=== PATIENT | female | born 1985 | race Hispanic/Latino ===

== ENCOUNTER 2016-12-01 16:40 | Emergency (ER) | payer OTHER ==
[~2016-12-01] VITALS: Ht 157.5 cm; Wt 68.0 kg
[~2016-12-01 16:40] MED LIST: ANAPROX DS550 MG PO; TRAMADOL HCL50 MG PO
--- OUTSIDE RECORDS SUMMARY | 2016-12-01 16:58 | XMS ---
Demographics + + + | Address | [address] | | | [address] | | | [place] [address] | + + + | Preferred Language | Unknown | + + + | Marital Status | Unknown | + + + | Christianity Affiliation | Unknown | + + + | Race | Unknown | + + + | Ethnic Group | Unknown | + + + Author + + + | Author | [facility] | + + + | Organization | [facility] | + + + | Address | [address] | | | [place] [address] | + + + | Phone | | + + + Care Team Providers + + + + | Care Sap Bpc Developer Name | Role | Phone | + + + + Unavailable | Unavailable | + + + + PROBLEMS + + + + + + + + | Type | Condition | ICD9-CM | [id number] | Onset | Condition | SNOMED | | | | Code | Code | Dates | Status | Code | + + + + + + + + | Assessment | Dysuria | | R30.0 | 09 October, | Active | [id number] | | | | | | 2017 | | | + + + + + + + + | Assessment | Screen for | | Z11.3 | 09 October, | Active | [id number] | | | STD | | | 2016 | | | | | (sexually | | | | | | | | transmitte | | | | | | | | d disease) | | | | | | + + + + + + + + ALLERGIES + + + + +--------+ | Substance | Reaction | Event Type | Date | Status | + + + + +--------+ | Ibuprofen | swelling | Drug Allergy | September, | Active | + + + + +--------+ SOCIAL HISTORY No smoking Hx information available PLAN OF CARE + +---------+ | Activity | Details | + +---------+ +---+ | | +---+ + + + | Pending Test | Chlamydia/GC Aptima | + + + | | prn,Reason: | + + + VITAL SIGNS + + + + | Height | 63 in | 2016-10-09 | + + + + | Weight | 148.8 lbs | 2016-10-09 | + + + + | BMI | 26.36 kg/m2 | 2016-10-09 | + + + + | Temperature | 98.1 degrees Fahrenheit | 2016-10-09 | + + + + | Heart Rate | 70 /min | 2016-10-09 | + + + + | Blood pressure systolic | 127 mm Hg | 2016-10-09 | + + + + | Blood pressure diastolic | 63 mm Hg | 2016-10-09 | + + + + MEDICATIONS No Known Medications RESULTS + +--------+ + + | Name | Result | Date | Reference Range | + +--------+ + + | Urinalysis, Dip | | 2016-10-09 | | | (IH) | | | | + +--------+ + + | Specific Thurman | 1.010 | | | + +--------+ + + | pH | 6 | | | + +--------+ + + | Leukocytes | NEG | | | + +--------+ + + | Nitrite, Urine | NEG | | | + +--------+ + + | Protein | NEG | | | + +--------+ + + | Glucose | NORM | | | + +--------+ + + | Ketones | NEG | | | + +--------+ + + | Urobilingen, | NORM | | | | Semi-Qn | | | | + +--------+ + + | Bilirubin | NEG | | | + +--------+ + + | Blood Hemoglobin | NEG | | | | (BLD) | | | | + +--------+ + + | Urinalysis, HCG | | 2016-10-09 | | | (IH) | | | | + +--------+ + + PROCEDURES + + + + + | Procedure | Date Ordered | Related Diagnosis | Body Site | + + + + + | LAB URINALYSIS (DIP | October 09, 2016 | | | | STICK ONLY | | | | + + + + + | FC [id number] URINE | October 09, 2016 | | | | TEST | | | | + + + + + | DSCHRG MED/CURRENT | October 09, 2016 | | | | MED MERGE | | | | + + + + + | Est Level III | October 09, 2016 | | | | Intermediate | | | | + + + + + | DOC MEDS VERIFIED | October 09, 2016 | | | | W/PT OR RE | | | | + + + + + IMMUNIZATIONS No Known Immunizations"
--- OUTSIDE RECORDS SUMMARY | 2016-12-01 16:58 | XMS ---
Demographics + + + | Address | [address] | | | [address] | | | [place] [address] | + + + | Preferred Language | Unknown | + + + | Marital Status | Unknown | + + + | Latter-Day Affiliation | Unknown | + + + | Race | Unknown | + + + | Ethnic Group | Unknown | + + + Author + + + | Author | [facility] | + + + | Organization | [facility] | + + + | Address | [address] | | | [place] [address] | + + + | Phone | | + + + Care Team Providers + + + + | Care Cattle Dipper Name | Role | Phone | + + + + Unavailable | Unavailable | + + + + PROBLEMS Unknown Problems ALLERGIES Unknown Allergies SOCIAL HISTORY No smoking Hx information available PLAN OF CARE VITAL SIGNS MEDICATIONS Unknown Medications RESULTS No Results PROCEDURES No Known procedures IMMUNIZATIONS No Known Immunizations"
--- OUTSIDE RECORDS SUMMARY | 2016-12-01 16:58 | XMS ---
Demographics + + + | Address | [address] | | | [address] | | | [place] [address] | + + + | Preferred Language | Unknown | + + + | Marital Status | Unknown | + + + | Christian Affiliation | Unknown | + + + | Race | Unknown | + + + | Ethnic Group | Unknown | + + + Author + + + | Author | [facility] | + + + | Organization | [facility] | + + + | Address | [address] | | | [place] [address] | + + + | Phone | | + + + Care Team Providers + + + + | Care Casting Machine Set Up Operator Name | Role | Phone | + + + + Unavailable | Unavailable | + + + + PROBLEMS + + + + + + + + | Type | Condition | ICD9-CM | [id number] | Onset | Condition | SNOMED | | | | Code | Code | Dates | Status | Code | + + + + + + + + | Assessment | Acute URI | | J06.9 | Aug, | Active | [id number] | | | | | | 2016 | | | + + + + + + + + | Assessment | Pleuritic | R07.81 | | Aug, | Active | [id number] | | | pain | | | 2016 | | | + + + + + + + + ALLERGIES + + + + +--------+ | Substance | Reaction | Event Type | Date | Status | + + + + +--------+ | Ibuprofen | swelling | Drug Allergy | Aug, | Active | + + + + +--------+ SOCIAL HISTORY No smoking Hx information available PLAN OF CARE VITAL SIGNS + + + + | Height | 63 in | 2016-09-04 | + + + + | Weight | 151.3 lbs | 2016-09-04 | + + + + | BMI | 26.80 kg/m2 | 2016-09-04 | + + + + | Temperature | 98.3 degrees Fahrenheit | 2016-09-04 | + + + + | Heart Rate | 75 /min | 2016-09-04 | + + + + | Blood pressure systolic | 117 mm Hg | 2016-09-04 | + + + + | Blood pressure diastolic | 78 mm Hg | 2016-09-04 | + + + + MEDICATIONS + + +---------+ + + + +--------+ | Medicati | Instruct | Dosage | Frequenc | Start | End Date | Duration | Status | | on | ions | | y | Date | | | | + + +---------+ + + + +--------+ | Tramadol | | | | | | | Active | | HCl | | | | | | | | + + +---------+ + + + +--------+ | Albutero | Inhalati | 1 puff | 4h | 06 Apr, | | 15 | Active | | l | on every | as | | 2017 | | day(s) | | | Sulfate | 4 hrs | needed | | | | | | | 108 (90 | | | | | | | | | Base) | | | | | | | | | MCG/ACT | | | | | | | | + + +---------+ + + + +--------+ RESULTS + +--------+------+ + | Name | Result | Date | Reference Range | + +--------+------+ + | Rapid Flu, A & B | | | | | (IH) | | | | + +--------+------+ + PROCEDURES + + + + + | Procedure | Date Ordered | Related Diagnosis | Body Site | + + + + + | INFLUENZA ASSAY | September 04, 2016 | | | | W/OPTIC | | | | + + + + + | Est Level III | September 04, 2016 | | | | Intermediate | | | | + + + + + IMMUNIZATIONS No Known Immunizations"
--- NOTE | 2016-12-01 20:57 | EKG ---
[facility] [address] [facility] [address] [place] [address] Signed Normal sinus rhythm Normal ECG No previous ECGs available Confirmed by ELIECER PHILLIPS MD ([id number]) on 12/01/2016 8:57:46 PM Electronically Signed By: ELIECER PHILLIPS MD 12/01/16 2057 PATIENT NAME: MICHAEL RASMUSSEN Electrocardiogram DATE OF : 89 PHYSICIAN: ELIECER PHILLIPS MD REPORT #: [id number] REPORT IS CONFIDENTIAL AND NOT TO BE RELEASED WITHOUT AUTHORIZATION
== END 2016-12-01 17:43 | disposition home or self-care (01) ==
LOC: ED 16:40
DX: F41.9 Anxiety disorder, unspecified (principal); G44.209 Tension-type headache, unspecified, not intractable; F17.200 Nicotine dependence, unspecified, uncomplicated; Z90.49 Acquired absence of other specified parts of digestive tract; Z98.890 Other specified postprocedural states
CPT/HCPCS: 93005; 93010; 99283

== ENCOUNTER 2017-04-10 01:22 | Emergency (ER) | payer OTHER ==
[~2017-04-10] VITALS: Ht 160 cm; Wt 68.0 kg
[2017-04-10] MEDS ORDERED: NAPROXEN500 MG PO (01:35)
== END 2017-04-10 01:55 | disposition home or self-care (01) ==
LOC: ED 01:22
DX: F41.9 Anxiety disorder, unspecified (principal); Z87.891 Personal history of nicotine dependence; Z98.890 Other specified postprocedural states; Z88.6 Allergy status to analgesic agent
CPT/HCPCS: 99283

== ENCOUNTER 2018-08-15 21:18 | Emergency (ER) | payer OTHER ==
[~2018-08-15] VITALS: Ht 160 cm; Wt 63.5 kg
[~2018-08-15 21:18] MED LIST changes: +NAPROXEN500 MG PO
--- OUTSIDE RECORDS SUMMARY | 2018-08-15 21:20 | XMS ---
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 E.D. VISIT COUNT (12 MO.) 5 [facility] Erick 1 NATALIE Rojas TOTAL 6 NOTE: Visits indicate total known visits. ED/UCC VISIT TRACKING (12 MO.) 08/15/2018 21:18 [place] TYPE: Emergency COMPLAINT: - POST OP PROBLEM [facility]2018 [facility] DIAGNOSES: - Cough - Influenza due to other identified influenza virus with other respiratory manifestations - Acute cystitis without hematuria - Fever (9 Weeks To 74 Years) - abd pain 07/29/2018 10:[facility] DIAGNOSES: - finger injury - Displaced fracture of middle phalanx of right ring finger, initial encounter for closed fracture 07/08/2018 07:56 [facility] Emergency DIAGNOSES: - Other hammer toe(s) (acquired), right foot - Bi-Lateral Foot Pain - Other hammer toe(s) (acquired), left foot 10/04/2017 15:52 [facility] Emergency DIAGNOSES: - abd 4 months preg - Nausea - abd pain 4 months preg - Unspecified abdominal pain - Nausea - 16 weeks gestation of - Abdominal Pain () 09/05/2017 12:21 [facility] Erick Annmarie ROMANO TYPE: Emergency DIAGNOSES: - Encounter for supervision of normal , unspecified, unspecified trimester - ABDOMINAL PAIN INPATIENT VISIT TRACKING (12 MO.) 03/18/2018 05:55 [facility] ReynaldoKeke ROMANO TYPE: Mother Baby Unit DIAGNOSES: - O34.211 - Encounter for routine follow-up 03/05/2018 18:04 [facility] Mother Baby Unit DIAGNOSES: - O34.211 - Non-stress Test [email or web address]
[2018-08-15] MEDS ORDERED: KEFLEX500 MG PO (21:34)
== END 2018-08-15 22:10 | disposition home or self-care (01) ==
LOC: ED 21:18
DX: Z48.01 Encounter for change or removal of surgical wound dressing (principal); Z88.6 Allergy status to analgesic agent
CPT/HCPCS: 99283

== ENCOUNTER 2023-05-25 11:25 | Emergency (ER) | payer OTHER ==
[~2023-05-25] VITALS: Ht 160 cm; Wt 64.1 kg
[~2023-05-25 11:25] MED LIST changes: +KEFLEX500 MG PO
[2023-05-25 11:53] LABS: BILIRUBIN, URINE POSITIVE (negative); BLOOD/HGB, URINE TRACE-I (Negative); KETONE, URINE >=80 (Negative); LEUK ESTERASE, URINE TRACE (negative); NITRITE, URINE NEGATIVE (negative); PH, URINE 5.5 (5-7)
[2023-05-25 12:16] LABS: AMPHETAMINES, URINE NEGATIVE (NEGATIVE); BARBITURATES, URINE NEGATIVE (NEGATIVE); BENZODIAZEPINE, URINE NEGATIVE (NEGATIVE); BUPRENORPHINE, URINE NEGATIVE (NEGATIVE); CANNABINOID, URINE NEGATIVE (NEGATIVE); COCAINE, URINE NEGATIVE (NEGATIVE); ECSTASY, URINE NEGATIVE (NEGATIVE); FENTANYL, URINE NEGATIVE (NEGATIVE); METHADONE, URINE NEGATIVE (NEGATIVE); OPIATES, URINE NEGATIVE (NEGATIVE); OXYCODONE, URINE NEGATIVE (NEGATIVE); PHENCYCLIDINE, URINE NEGATIVE (NEGATIVE)
[2023-05-25 12:32] LABS: BACTERIA, URINE RARE /hpf (negative); CASTS, URINE NONE SEEN \\lpf; COLLECTION TYPE, URINE CLEAN CATCH; CRYSTALS, URINE NONE SEEN (0-1+); EPITHELIAL CELLS, URINE SQUAMOUS 2+ /lpf (0-1+); REFLEX CULTURE, URINE No (No)
[2023-05-25] MEDS ORDERED: BENZTROPINE MESY1 MG PO (12:50)
[2023-05-25] MEDS ORDERED: RISPERDAL2 MG PO (12:50)
[2023-05-25 12:54] VITALS: BP 110/71
== END 2023-05-25 12:56 | disposition home or self-care (01) ==
LOC: ED 11:25
PROVIDERS: Emergency Medicine
DX: F23 Brief psychotic disorder (principal); F15.99 Other stimulant use, unspecified with unspecified stimulant-induced disorder; Z88.6 Allergy status to analgesic agent
CPT/HCPCS: 80053; 80307; 81001; 84443; 84703; 85025; 99284; A9270; G0480

== ENCOUNTER 2023-06-22 08:10 | Emergency (ER) | payer OTHER ==
[~2023-06-22] VITALS: Ht 160 cm; Wt 65.0 kg
[~2023-06-22 08:10] MED LIST changes: +BENZTROPINE MESY1 MG PO; +RISPERDAL2 MG PO
[2023-06-22 08:47] VITALS: BP 122/84
--- OUTSIDE RECORDS SUMMARY | 2023-06-22 08:57 | XMS ---
PreManage Notification: MICHAEL RASMUSSEN Security Steward/Stewardess Second Class Events No recent Security Events currently on file CRITERIA MET - [facility] - 2 Visits in 30 Days CARE PROVIDERS JAMES HOFFMAN Physician Resource Specialist: Medical 08/16/2018-Current PHONE: Unknown -Alexis- Dentist: Search Marketing Coordinator [facility] PHONE: [phone] MIRIAM GRIFFIN Current PHONE: Unknown [facility]/Center: [facility] Qualified [facility] Current WORKERS CLINIC \[facility] ([facility]) [facility], [facility] PHONE: [phone] Taylor has no Care Guidelines for this patient. Nelly VISIT COUNT (12 MO.) 5 [facility] (Annmarie Anguiano) 3 NATALIE Rojas TOTAL 8 NOTE: Visits indicate total known visits. ED/UCC VISIT TRACKING (12 MO.) 06/22/2023 08:11 [place] TYPE: Emergency COMPLAINT: - MEDICAL CLEARANCE 06/19/2023 06:30 [facility] Annmarie ROMANO (Annmarie Anguiano) TYPE: Emergency DIAGNOSES: - Hematuria, unspecified - Urinary tract infection, site not specified - Abdominal Pain 05/25/2023 11:[address] [facility] St[facility] Zana JARAMILLO TYPE: Emergency COMPLAINT: - ALTERED DIAGNOSES: - Allergy status to analgesic agent - Brief psychotic disorder - Other stimulant use, unspecified with unspecified stimulant-induced disorder - Suicidal ideations 12/28/2022 14:18 [facility] Annmarie ROMANO (Annmarie Anguiano) TYPE: Emergency DIAGNOSES: - Bunion of left foot - Bunion of right foot - Tinea pedis - Foot Pain 12/03/2022 18:38 [facility] Annmarie Anguiano JUAN ANTONIO (Annmarie Anguiano) TYPE: Emergency DIAGNOSES: - Encounter for other specified special examinations - ambulance 09/14/2022 20:16 [place] TYPE: Emergency COMPLAINT: - AMS DIAGNOSES: - Allergy status to analgesic agent - Brief psychotic disorder - Other asthma - Other stimulant abuse, uncomplicated - Suicidal ideations 08/31/2022 12:44 [facility] Annmarie Anguiano JUAN ANTONIO (Annmarie Anguiano) TYPE: Emergency DIAGNOSES: - Cellulitis, unspecified - Contusion of left knee, initial encounter - Other infective bursitis, unspecified site - Wound Infection (Complicated) 08/31/2022 10:16 [facility] [place] (Annmarie Anguiano) TYPE: Emergency DIAGNOSES: - Cellulitis, unspecified - Contusion of left knee, initial encounter - Leg Pain - Leg Swelling INPATIENT VISIT TRACKING (12 MO.) No inpatient visits to display in this time frame [email or web address]
== END 2023-06-22 08:47 | disposition home or self-care (01) ==
LOC: ED 08:10
DX: Z04.6 Encounter for general psychiatric examination, requested by authority (principal); Z59.00 Homelessness unspecified; J45.990 Exercise induced bronchospasm; Z79.899 Other long term (current) drug therapy
CPT/HCPCS: 99283

== ENCOUNTER 2024-05-18 17:28 | Emergency (ER) | payer OTHER ==
[~2024-05-18] VITALS: Ht 160 cm; Wt 85.0 kg
--- OUTSIDE RECORDS SUMMARY | 2024-05-18 17:29 | XMS ---
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 Current WORKERS CLINIC \[facility] ([facility]) [facility] PHONE: [phone] Taylor has no Care Guidelines for this patient. Nelly VISIT COUNT (12 MO.) 8 [facility] 3 NATALIE Rojas 2 [facility] Debora Suarez (Annmarie Anguiano) TOTAL 13 NOTE: Visits indicate total known visits. ED/UCC VISIT TRACKING (12 MO.) 05/18/2024 17:28 [place] TYPE: Emergency COMPLAINT: - VOMITING 03/01/2024 19:53 [facility] [employer] [place] TYPE: Emergency DIAGNOSES: - Alcohol abuse, uncomplicated - Nausea with vomiting, unspecified - VOMITING 02/08/2024 22:54 [facility] [place] TYPE: Emergency COMPLAINT: - SOB DIAGNOSES: - SOB 01/21/2024 17:25 [employer] [place] TYPE: Emergency DIAGNOSES: - Acute bronchitis due to other specified organisms - Bronchitis, not specified as acute or chronic - Other specified bacterial agents as the cause of diseases classified elsewhere - GENERAL 01/15/2024 16:16 [facility] [place] TYPE: Emergency DIAGNOSES: - COVID-19 - Pneumonia due to Mycoplasma pneumoniae - Unspecified psychosis not due to a substance or known physiological condition - MENTAL HEALTH 01/11/2024 19:23 [email or web address] [place] TYPE: [facility] DIAGNOSES: - Acute suppurative otitis media without spontaneous rupture of ear drum, left ear - Foreign body sensation, other site - FB IN EAR 12/14/2023 15:58 [facility] [place] TYPE: Emergency DIAGNOSES: - Chest pain, unspecified - DIZZINESS CHEST PAIN 11/23/2023 09:00 [facility] [place] [facility] DIAGNOSES: - Bunion of left foot - Bunion of right foot - foot pain 10/26/2023 02:10 [facility] [place] TYPE: Emergency DIAGNOSES: - Encounter for other general examination - Hypokalemia - Other stimulant abuse, uncomplicated - Unspecified psychosis not due to a substance or known physiological condition - Mental Health Evaluation 09/01/2023 16:13 [facility] [place] TYPE: Emergency DIAGNOSES: - Cystitis, unspecified with hematuria - Viral infection, unspecified - DOESNT FEEL GOOD 06/22/2023 08:11 [place] TYPE: Emergency COMPLAINT: - MEDICAL CLEARANCE DIAGNOSES: - Encounter for general psychiatric examination, requested by authority - Exercise induced bronchospasm - Homelessness unspecified - Other termite control service representative (current) drug therapy 06/19/2023 06:30 [facility] Debora Anguiano) TYPE: Emergency DIAGNOSES: - Hematuria, unspecified - Urinary tract infection, site not specified - Abdominal Pain 05/25/2023 11:26 [place] TYPE: Emergency COMPLAINT: - ALTERED DIAGNOSES: - Allergy status to analgesic agent - Brief psychotic disorder - Other stimulant use, unspecified with unspecified stimulant-induced disorder - Suicidal ideations INPATIENT VISIT TRACKING (12 MO.) 03/08/2024 18:15 [facility] [place] TYPE: Psychiatric Services DIAGNOSES: 0. Unspecified psychosis not due to a substance or known physiological condition 1. Unspecified psychosis not due to a substance or known physiological condition 2. Alcohol dependence, uncomplicated 2. Bipolar disorder, current episode manic severe with psychotic features 2. Homelessness unspecified 2. Nicotine dependence, cigarettes, uncomplicated 2. Other specified lack of adequate food [email or web address]
[2024-05-18] MEDS ORDERED: SODIUM CHLORIDE 0.9% 500 ML IV ONE (17:45)
[2024-05-18 18:13] LABS: BASOPHILS 0.3 % (0-2); HEMATOCRIT 40.2 % (35.0-50.0); HEMOGLOBIN 13.6 g/dL (12.0-18.0); LYMPHOCYTES 6.8 % (24-44); MCH 30.9 (27-36); MCHC 33.7 g/dl (30-36); MCV 91.6 fl (81-99); MONOCYTES 3.3 % (0-12); NEUTROPHILS 88.6 % (39-80); PLATELET COUNT 383 K/uL (140-440); RBC 4.39 M/ul (4.3-5.7); RDW 13.1 (10.5-15.0)
[2024-05-18 18:28] LABS: ALBUMIN 3.4 g/dL (3.4-5.0); ALBUMIN/GLOBULIN RATIO 0.85 (1.1-2.4); ANION GAP 13.8 (7-21); BILIRUBIN, TOTAL 0.4 ng/dL (0.2-1.0); BUN/CREATININE RATIO 22.22 (6.0-28.6); CALCIUM 8.4 mg/dL (8.5-10.1); CREATININE, SERUM 0.63 mg/dL (0.55-1.02); MAGNESIUM 1.8 mg/dL (1.8-2.4); POTASSIUM 3.8 mmol/L (3.5-5.1); PROTEIN, TOTAL 7.4 g/dL (6.4-8.2)
[2024-05-18 19:23] LABS: PHOSPHORUS, INORGANIC 3.2 mg/dL (2.5-4.9)
[2024-05-18] MEDS ORDERED: LACTATED RINGER'S 1,000 ML IV ONE (19:30)
[2024-05-18] MEDS ORDERED: FAMOTIDINE 20 MG/ 2 ML VIAL IV ONE (19:30)
[2024-05-18 19:32] LABS: BILIRUBIN, URINE NEGATIVE (negative); BLOOD/HGB, URINE NEGATIVE (Negative); KETONE, URINE NEGATIVE (Negative); LEUK ESTERASE, URINE NEGATIVE (negative); NITRITE, URINE NEGATIVE (negative); PH, URINE 6.5 (5-7)
[2024-05-18 19:49] LABS: AMPHETAMINES, URINE NEGATIVE (NEGATIVE); BARBITURATES, URINE NEGATIVE (NEGATIVE); BENZODIAZEPINE, URINE NEGATIVE (NEGATIVE); BUPRENORPHINE, URINE NEGATIVE (NEGATIVE); CANNABINOID, URINE NEGATIVE (NEGATIVE); COCAINE, URINE NEGATIVE (NEGATIVE); ECSTASY, URINE NEGATIVE (NEGATIVE); FENTANYL, URINE NEGATIVE (NEGATIVE); METHADONE, URINE NEGATIVE (NEGATIVE); OPIATES, URINE NEGATIVE (NEGATIVE); OXYCODONE, URINE NEGATIVE (NEGATIVE); PHENCYCLIDINE, URINE NEGATIVE (NEGATIVE)
[2024-05-18] MEDS ORDERED: ONDANSETRON ODT4 MG PO (22:59)
[2024-05-18] MEDS ORDERED: OMEPRAZOLE20 MG PO (22:59)
[2024-05-18] MEDS ORDERED: ONDANSETRON 4 MG HOME.PACK SL ONE (23:00)
[2024-05-19 00:22] VITALS: BP 125/76
== END 2024-05-19 00:22 | disposition home or self-care (01) ==
LOC: ED 17:28
PROVIDERS: Emergency Medicine; Internal Medicine
DX: E86.0 Dehydration (principal); K21.9 Gastro-esophageal reflux disease without esophagitis; J45.998 Other asthma; Z88.6 Allergy status to analgesic agent
CPT/HCPCS: 36415; 74177; 80053; 80307; 81003; 83690; 83735; 84100; 84703; 85025; 99284-25; A9270; G0480; J7040; Q9967

== ENCOUNTER 2024-06-06 06:53 | Emergency (ER) | payer OTHER ==
[~2024-06-06] VITALS: Ht 160 cm; Wt 81.6 kg
[~2024-06-06 06:53] MED LIST changes: +OMEPRAZOLE20 MG PO; +ONDANSETRON ODT4 MG PO
--- OUTSIDE RECORDS SUMMARY | 2024-06-06 06:54 | XMS ---
PreManage Notification: MICHAEL RASMUSSEN Security Gem Expert Events No recent Security Events currently on file CRITERIA MET - 6 ED Visits in 6 Months - [facility] - 2 Visits in 30 Days - [facility] - 3 Facilities in 90 Days CARE PROVIDERS JAMES HOFFMAN Engineering Document Control Clerk: Medical 08/16/2018-Current PHONE: Unknown -, Alexis- Dentist: Cupola Tender [facility] PHONE: [phone] MIRIAM GRIFFIN Current PHONE: Unknown [facility]/Center: [facility] WORKERS CLINIC [facility] ([facility]) [facility] PHONE: [phone] Taylro has no Care Guidelines for this patient. Nelly VISIT COUNT (12 MO.) 9 [facility] [address] Debora Suarez (Annmarie Anguiano) TOTAL 15 NOTE: Visits indicate total known visits. ED/UCC VISIT TRACKING (12 MO.) 06/06/2024 06[facility] [place] [facility] COMPLAINT: - ABDOMINAL PAIN 05/28/2024 17:58 [facility] Annmarie ROMANO ([place]) TYPE: Emergency DIAGNOSES: - Disorientation, unspecified - Mental Health Evaluation 05/23/2024 02:27 [facility] [place] TYPE: Emergency DIAGNOSES: - Epigastric pain - abd pain 05/18/2024 17:28 [facility] [place] [facility] COMPLAINT: - VOMITING DIAGNOSES: - Allergy status to analgesic agent - Dehydration - Epigastric pain - Gastro-esophageal reflux disease without esophagitis - Other asthma 03/01/2024 19:53 [facility] [place] TYPE: Emergency DIAGNOSES: - Alcohol abuse, uncomplicated - Nausea with vomiting, unspecified - VOMITING 02/08/2024 22:54 [facility] [place] TYPE: Emergency COMPLAINT: - SOB DIAGNOSES: - SOB 01/21/2024 17:25 [facility] [place] TYPE: Emergency DIAGNOSES: - Acute bronchitis due to other specified organisms - Bronchitis, not specified as acute or chronic - Other specified bacterial agents as the cause of diseases classified elsewhere - GENERAL 01/15/2024 16:16 [facility] [place] TYPE: Emergency DIAGNOSES: - COVID-19 - Pneumonia due to Mycoplasma pneumoniae - Unspecified psychosis not due to a substance or known physiological condition - MENTAL HEALTH 01/11/2024 19:23 [facility] [place] TYPE: Emergency DIAGNOSES: - Acute suppurative otitis media without spontaneous rupture of ear drum, left ear - Foreign body sensation, other site - FB IN EAR 12/14/2023 15:58 [facility] [place] TYPE: Emergency DIAGNOSES: - Chest pain, unspecified - DIZZINESS CHEST PAIN 11/23/2023 09:00 [facility] [place] TYPE: Emergency DIAGNOSES: - Bunion of left foot - Bunion of right foot - foot pain 10/26/2023 02:10 [facility] Annmarie ROMANO (Annmarie Anguiano) TYPE: Emergency DIAGNOSES: - Encounter for other general examination - Hypokalemia - Other stimulant abuse, uncomplicated - Unspecified psychosis not due to a substance or known physiological condition - Mental Health Evaluation 09/01/2023 16:13 [facility] [place] TYPE: Emergency DIAGNOSES: - Cystitis, unspecified with hematuria - Viral infection, unspecified - DOESNT FEEL GOOD 06/22/2023 08:11 [facility] [place] TYPE: Emergency COMPLAINT: - MEDICAL CLEARANCE DIAGNOSES: - Encounter for general psychiatric examination, requested by authority - Exercise induced bronchospasm - Homelessness unspecified - Other supervisor intermediates (current) drug therapy 06/19/2023 06:30 [facility] Erick ROMANO (Annmarie Anguiano) TYPE: Emergency DIAGNOSES: - Hematuria, unspecified - Urinary tract infection, site not specified - Abdominal Pain INPATIENT VISIT TRACKING (12 MO.) 03/08/2024 18:15 [facility] [place] TYPE: Psychiatric Services DIAGNOSES: 0. Unspecified psychosis not due to a substance or known physiological condition 1. Unspecified psychosis not due to a substance or known physiological condition 2. Alcohol dependence, uncomplicated 2. Bipolar disorder, current episode manic severe with psychotic features 2. Homelessness unspecified 2. Nicotine dependence, cigarettes, uncomplicated 2. Other specified lack of adequate food [email or web address]
[2024-06-06 07:44] LABS: BASOPHILS 0.6 % (0-2); EOSINOPHILS 5.1 % (0-6); HEMATOCRIT 39.2 % (35.0-50.0); HEMOGLOBIN 13.2 g/dL (12.0-18.0); LYMPHOCYTES 26.7 % (24-44); MCH 30.7 (27-36); MCHC 33.7 g/dl (30-36); MCV 91.1 fl (81-99); MONOCYTES 6.8 % (0-12); NEUTROPHILS 60.8 % (39-80); PLATELET COUNT 395 K/uL (140-440); RBC 4.31 M/ul (4.3-5.7); RDW 13.5 (10.5-15.0)
[2024-06-06 07:54] LABS: ALBUMIN 3.4 g/dL (3.4-5.0); ALBUMIN/GLOBULIN RATIO 0.89 (1.1-2.4); ANION GAP 11.8 (7-21); BILIRUBIN, TOTAL 0.7 ng/dL (0.2-1.0); BUN/CREATININE RATIO 11.9 (6.0-28.6); CALCIUM 9.2 mg/dL (8.5-10.1); CREATININE, SERUM 0.84 mg/dL (0.55-1.02); POTASSIUM 2.8 mmol/L (3.5-5.1); PROTEIN, TOTAL 7.2 g/dL (6.4-8.2)
[2024-06-06] MEDS ORDERED: POTASSIUM CHLORIDE 10 MEQ TABCR PO ONE (08:00)
[2024-06-06] MEDS ORDERED: ONDANSETRON ODT8 MG PO (08:13)
[2024-06-06 10:45] VITALS: BP 107/72
== END 2024-06-06 10:40 | disposition home or self-care (01) ==
LOC: ED 06:53
PROVIDERS: Emergency Medicine
DX: R10.30 Lower abdominal pain, unspecified (principal); J45.990 Exercise induced bronchospasm; E66.9 Obesity, unspecified; Z88.6 Allergy status to analgesic agent; Z79.899 Other long term (current) drug therapy
CPT/HCPCS: 36415; 80053; 83690; 84703; 85025; 99284; A9270

== ENCOUNTER 2024-06-14 23:44 | Emergency (ER) | payer OTHER ==
[~2024-06-14] VITALS: Ht 160 cm; Wt 84.8 kg
[~2024-06-14 23:44] MED LIST changes: +ONDANSETRON ODT8 MG PO
--- OUTSIDE RECORDS SUMMARY | 2024-06-14 23:46 | XMS ---
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 - 2 Visits in 30 Days - [facility] - 3 Facilities in 90 Days CARE PROVIDERS JAMES HOFFMAN Grading Machine Operator: Medical 08/16/2018-Current PHONE: Unknown -, Alexis- Dentist: [facility] PHONE: [phone] MIRIAM GRIFFIN Current PHONE: Unknown [facility]/Center: [facility] WORKERS [facility]INIC [facility] ([facility]) [facility], [facility] PHONE: [phone] Taylor has no Care Guidelines for this patient. Nelly VISIT COUNT (12 MO.) [address] Debora Suarez (Annmarie Anguiano) TOTAL 16 NOTE: Visits indicate total known visits. ED/UCC VISIT TRACKING (12 MO.) 06/14/2024 23:[address] [facility] [address] [facility] [place] TYPE: Emergency COMPLAINT: - ABDOMINAL PAIN 06/06/2024 06:[address] [facility] [address] [facility] [place] TYPE: Emergency COMPLAINT: - ABDOMINAL PAIN DIAGNOSES: - Allergy status to analgesic agent - Exercise induced bronchospasm - Lower abdominal pain, unspecified - Obesity, unspecified - Other mcc (current) drug therapy 05/28/2024 17:58 [facility] (Annmarie Anguiano) TYPE: Emergency DIAGNOSES: - Disorientation, unspecified - Mental Health Evaluation 05/23/2024 02:27 [facility] [place] TYPE: Emergency DIAGNOSES: - Epigastric pain - abd pain 05/18/2024 17:28 [facility] [place] H[place] Tanner [place] TYPE: Emergency COMPLAINT: - VOMITING DIAGNOSES: - Allergy status to analgesic agent - Dehydration - Epigastric pain - Gastro-esophageal reflux disease without esophagitis - Other asthma 03/01/2024 19:53 [facility] [place] TYPE: Emergency DIAGNOSES: - Alcohol abuse, uncomplicated - Nausea with vomiting, unspecified - VOMITING 02/08/2024 22:54 [facility] [place] TYPE: Emergency COMPLAINT: - SOB DIAGNOSES: - SOB 01/21/2024 17:25 [employer] [place] TYPE: Emergency DIAGNOSES: - Acute bronchitis due to other specified organisms - Bronchitis, not specified as acute or chronic - Other specified bacterial agents as the cause of diseases classified elsewhere - GENERAL 01/15/2024 16:16 [employer] [place] TYPE: Emergency DIAGNOSES: - COVID-19 - Pneumonia due to Mycoplasma pneumoniae - Unspecified psychosis not due to a substance or known physiological condition - MENTAL HEALTH 01/11/2024 19:23 [employer] [place] TYPE: Emergency DIAGNOSES: - Acute suppurative otitis media without spontaneous rupture of ear drum, left ear - Foreign body sensation, other site - FB IN EAR 12/14/2023 15:58 Alicanto Parrish [employer] [place] TYPE: Emergency DIAGNOSES: - Chest pain, unspecified - DIZZINESS CHEST PAIN 11/23/2023 09:00 [facility] [place] TYPE: Emergency DIAGNOSES: - Bunion of left foot - Bunion of right foot - foot pain 10/26/2023 02:10 [facility] Annmarie ROMANO ([place]) TYPE: Emergency DIAGNOSES: - Encounter for other general examination - Hypokalemia - Other stimulant abuse, uncomplicated - Unspecified psychosis not due to a substance or known physiological condition - Mental Health Evaluation 09/01/2023 16:13 [facility] [place] TYPE: Emergency DIAGNOSES: - Cystitis, unspecified with hematuria - Viral infection, unspecified - DOESNT FEEL GOOD 06/22/2023 08:11 [facility] [place] TYPE: Emergency COMPLAINT: - MEDICAL CLEARANCE DIAGNOSES: - Encounter for general psychiatric examination, requested by authority - Exercise induced bronchospasm - Homelessness unspecified - Other mcc (current) drug therapy 06/19/2023 06:30 [facility]Annmarie Anguiano[facility] TYPE: Emergency DIAGNOSES: - Hematuria, unspecified - Urinary tract infection, site not specified - Abdominal Pain INPATIENT VISIT TRACKING (12 MO.) 03/08/2024 18:15 [facility] [place] TYPE: Psychiatric Services DIAGNOSES: 0. Unspecified psychosis not due to a substance or known physiological condition 1. Unspecified psychosis not due to a substance or known physiological condition 2. Alcohol dependence, uncomplicated 2. Bipolar disorder, current episode manic severe with psychotic features 2. Homelessness unspecified 2. Nicotine dependence, cigarettes, uncomplicated 2. Other specified lack of adequate food [email or web address]
[2024-06-15] MEDS ORDERED: PRILOSEC OTC20 MG PO (00:02)
[2024-06-15 00:12] VITALS: BP 123/68
== END 2024-06-15 00:13 | disposition home or self-care (01) ==
LOC: ED 23:44
DX: K21.9 Gastro-esophageal reflux disease without esophagitis (principal); J45.990 Exercise induced bronchospasm; Z90.49 Acquired absence of other specified parts of digestive tract; Z88.6 Allergy status to analgesic agent
CPT/HCPCS: 99283

== ENCOUNTER 2024-06-17 11:34 | Emergency (ER) | payer OTHER ==
[~2024-06-17] VITALS: Ht 160 cm; Wt 82.6 kg
[~2024-06-17 11:34] MED LIST changes: +PRILOSEC OTC20 MG PO
--- OUTSIDE RECORDS SUMMARY | 2024-06-17 11:35 | XMS ---
PreManage Notification: MICHAEL RASMUSSEN Security Human Resources Temp Events No recent Security Events currently on file CRITERIA MET - 6 ED Visits in 6 Months - [facility] - 2 Visits in 30 Days - [facility] - 3 Facilities in 90 Days CARE PROVIDERS JAMES HOFFMAN Manufacturer Agent: Medical 08/16/2018-Current PHONE: Unknown -, Alexis- Dentist: Metal Fabricating Inspector [facility] PHONE: [phone] MIRIAM GRIFFIN Current PHONE: Unknown [facility]/Center: [facility] WORKERS CLINIC [facility] ([facility]) [facility] PHONE: [phone] Taylor has no Care Guidelines for this patient. Nelly VISIT COUNT (12 MO.) [address] Debora Suarez (Annmarie Anguiano) TOTAL 17 NOTE: Visits indicate total known visits. ED/UCC VISIT TRACKING (12 MO.) 06/17/2024 11:[address] [facility] St[facility] aZna Zuniga [place] TYPE: Emergency COMPLAINT: - COLD SYMPTOMS 06/14/2024 23:[address] [facility] St[facility] Zana TorresKeke Tanner [place] TYPE: Emergency COMPLAINT: - ABDOMINAL PAIN 06/06/2024 06:[address] [facility] [place] HKeke Tanner [place] TYPE: Emergency COMPLAINT: - ABDOMINAL PAIN DIAGNOSES: - Allergy status to analgesic agent - Exercise induced bronchospasm - Lower abdominal pain, unspecified - Obesity, unspecified - Other long-term (current) drug therapy 05/28/2024 17:58 [facility] Erick ROMANO (Annmarie Anguiano) TYPE: Emergency DIAGNOSES: - Disorientation, unspecified - Mental Health Evaluation 05/23/2024 02:27 [employer] [place] TYPE: Emergency DIAGNOSES: - Epigastric pain - abd pain 05/18/2024 17:28 NATALIE Robertson [place] TYPE: Emergency COMPLAINT: - VOMITING DIAGNOSES: - Allergy status to analgesic agent - Dehydration - Epigastric pain - Gastro-esophageal reflux disease without esophagitis - Other asthma 03/01/2024 19:53 [facility] [place] TYPE: Emergency DIAGNOSES: - Alcohol abuse, uncomplicated - Nausea with vomiting, unspecified - VOMITING 02/08/2024 22:54 [employer] [place] TYPE: Emergency COMPLAINT: - SOB DIAGNOSES: - SOB 01/21/2024 17:25 [employer] [place] TYPE: Emergency DIAGNOSES: - Acute bronchitis due to other specified organisms - Bronchitis, not specified as acute or chronic - Other specified bacterial agents as the cause of diseases classified elsewhere - GENERAL 01/15/2024 16:16 [facility] TYPE: Emergency DIAGNOSES: - COVID-19 - Pneumonia due to Mycoplasma pneumoniae - Unspecified psychosis not due to a substance or known physiological condition - MENTAL HEALTH 01/11/2024 19:23 [facility] [place] TYPE: Emergency DIAGNOSES: - Acute suppurative otitis media without spontaneous rupture of ear drum, left ear - Foreign body sensation, other site - FB IN EAR 12/14/2023 15:58 [employer] [place] [email or web address] [place] TYPE: Emergency DIAGNOSES: - Chest pain, unspecified - DIZZINESS CHEST PAIN 11/23/2023 09:00 [employer] [facility] [place] TYPE: Emergency DIAGNOSES: - Bunion of left foot - Bunion of right foot - foot pain 10/26/2023 02:10 [facility] Annmarie ROMANO (Annmarie Anguiano) TYPE: Emergency DIAGNOSES: [...] induced bronchospasm - Homelessness unspecified - Other rodent exterminator (current) drug therapy 06/19/2023 06:30 [facility]Annmarie Anguiano[facility] TYPE: Emergency DIAGNOSES: - Hematuria, unspecified - Urinary tract infection, site not specified - Abdominal Pain INPATIENT VISIT TRACKING (12 MO.) 03/08/2024 18:15 [facility] TYPE: Psychiatric Services DIAGNOSES: 0. Unspecified psychosis not due to a substance or known physiological condition 1. Unspecified psychosis not due to a substance or known physiological condition 2. Alcohol dependence, uncomplicated 2. Bipolar disorder, current episode manic severe with psychotic features 2. Homelessness unspecified 2. Nicotine dependence, cigarettes, uncomplicated 2. Other specified lack of adequate food [email or web address]
[2024-06-17] MEDS ORDERED: ACETAMINOPHEN 500 MG TAB PO ONE (12:00)
[2024-06-17] MEDS ORDERED: ONDANSETRON 4 MG TAB ODT SL ONE (12:15)
[2024-06-17 13:34] VITALS: BP 96/64
[2024-06-18] MEDS ORDERED: PREDNISONE20 MG PO (10:23)
== END 2024-06-17 13:38 | disposition home or self-care (01) ==
LOC: ED 11:34
DX: B34.9 Viral infection, unspecified (principal); J45.990 Exercise induced bronchospasm; Z88.6 Allergy status to analgesic agent
CPT/HCPCS: 99283; A9270

== ENCOUNTER 2024-06-18 06:46 | Emergency (ER) | payer OTHER ==
[~2024-06-18] VITALS: Ht 160 cm; Wt 83.5 kg
--- OUTSIDE RECORDS SUMMARY | 2024-06-18 06:47 | XMS ---
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/Center: [facility] WORKERS CLINIC [facility] ([facility]) [facility] PHONE: [phone] Taylor has no Care Guidelines for this patient. Nelly VISIT COUNT (12 MO.) [address] eDbora Suarez (Annmarie Anguiano) TOTAL 18 NOTE: Visits indicate total known visits. ED/UCC VISIT TRACKING (12 MO.) 06/18/2024 06:[address] [facility] [address] [place] Nadia Tanner [place] TYPE: Emergency COMPLAINT: - COUGH 06/17/2024 11:34 [facility] [place] Nadia Tanner [place] TYPE: Emergency COMPLAINT: - COLD SYMPTOMS 06/14/2024 23:46 [facility] [place] TYPE: Emergency COMPLAINT: - ABDOMINAL PAIN 06/06/2024 06:[address] [facility] [address] Zana Tanner [place] TYPE: Emergency COMPLAINT: - ABDOMINAL PAIN DIAGNOSES: - Allergy status to analgesic agent - Exercise induced bronchospasm - Lower abdominal pain, unspecified - Obesity, unspecified - Other laborer marine terminal (current) drug therapy 05/28/2024 17:58 [employer] [facility] ROMANO (Annmarie Anguiano) TYPE: Emergency DIAGNOSES: - Disorientation, unspecified - Mental Health Evaluation 05/23/2024 02:27 for[MD] [facility] [place] TYPE: Emergency DIAGNOSES: - Epigastric pain - abd pain 05/18/2024 17:28 NATALIE Robertson [place] TYPE: Emergency COMPLAINT: - VOMITING DIAGNOSES: - Allergy status to analgesic agent - Dehydration - Epigastric pain - Gastro-esophageal reflux disease without esophagitis - Other asthma 03/01/2024 19:53 for[MD] [facility] [place] TYPE: Emergency DIAGNOSES: - Alcohol abuse, uncomplicated - Nausea with vomiting, unspecified - VOMITING 02/08/2024 22:54 [facility] [place] TYPE: Emergency COMPLAINT: - SOB DIAGNOSES: - SOB 01/21/2024 17:25 for[MD] [facility] [place] TYPE: Emergency DIAGNOSES: - Acute bronchitis due to other specified organisms - Bronchitis, not specified as acute or chronic - Other specified bacterial agents as the cause of diseases classified elsewhere - GENERAL 01/15/2024 16:16 for[MD] [facility] [place] TYPE: Emergency DIAGNOSES: - COVID-19 - Pneumonia due to Mycoplasma pneumoniae - Unspecified psychosis not due to a substance or known physiological condition - MENTAL HEALTH 01/11/2024 19:23 for[MD] [facility] [place] TYPE: Emergency DIAGNOSES: - Acute suppurative otitis media without spontaneous rupture of ear drum, left ear - Foreign body sensation, other site - FB IN EAR 12/14/2023 15:58 [facility] [place] TYPE: Emergency DIAGNOSES: - Chest pain, unspecified - DIZZINESS CHEST PAIN 11/23/2023 09:00 for[MD] [facility] [place] TYPE: Emergency DIAGNOSES: - Bunion of left foot - Bunion of right foot - foot pain 10/26/2023 02:10 [facility] Annmarie ROMANO (Annmarie Anguiano) TYPE: Emergency DIAGNOSES: - Encounter for other general examination - Hypokalemia - Other stimulant abuse, uncomplicated - Unspecified psychosis not due to a substance or known physiological condition - Mental Health Evaluation 09/01/2023 16:13 [facility] [place] TYPE: Emergency DIAGNOSES: - Cystitis, unspecified with hematuria - Viral infection, unspecified - DOESNT FEEL GOOD 06/22/2023 08:11 NATALIE Robertson [place] TYPE: Emergency COMPLAINT: - MEDICAL CLEARANCE DIAGNOSES: - Encounter for general psychiatric examination, requested by authority - Exercise induced bronchospasm - Homelessness unspecified - Other alf (current) drug therapy 06/19/2023 06:30 [facility] Erick ROMANO (Annmarie Anguiano) TYPE: Emergency DIAGNOSES: - Hematuria, unspecified - Urinary tract infection, site not specified - Abdominal Pain INPATIENT VISIT TRACKING (12 MO.) 03/08/2024 18:15 [facility] [place] TYPE: Psychiatric Services DIAGNOSES: 0. Unspecified psychosis not due to a substance or known physiological condition 1. Unspecified psychosis not due to a substance or known physiological condition 2. Alcohol dependence, uncomplicated 2. Bipolar disorder, current episode manic severe with psychotic features 2. Homelessness unspecified 2. Nicotine dependence, cigarettes, uncomplicated 2. Other specified lack of adequate food [email or web address]
[2024-06-18] MEDS ORDERED: ALBUTEROL/IPRATROPIUM 3 ML NEB INH ONE ×2 (07:15→08:15)
[2024-06-18] MEDS ORDERED: ALBUTEROL SULFATE 8 GM HOME.PACK INH ONE (07:30)
[2024-06-18] MEDS ORDERED: INHALER, ASSIST DEVICES 1 EACH SPACER MISC ONE (07:30)
[2024-06-18] MEDS ORDERED: predniSONE 20 MG TAB PO ONE (08:15)
[2024-06-18] MEDS ORDERED: PREDNISONE20 MG PO (10:23)
[2024-06-18 11:32] VITALS: BP 136/91
== END 2024-06-18 11:30 | disposition home or self-care (01) ==
LOC: ED 06:46
DX: J20.9 Acute bronchitis, unspecified (principal); J45.990 Exercise induced bronchospasm; Z88.6 Allergy status to analgesic agent
CPT/HCPCS: 71045; 94640; 99283-25; J7512

== ENCOUNTER 2024-06-18 13:29 | Emergency (ER) | payer OTHER ==
[~2024-06-18] VITALS: Ht 160 cm; Wt 89.8 kg
[~2024-06-18 13:29] MED LIST changes: +PREDNISONE20 MG PO
--- OUTSIDE RECORDS SUMMARY | 2024-06-18 13:30 | XMS ---
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 No recent Security Events currently on file CRITERIA MET - 6 ED Visits in 6 Months - [facility] - 2 Visits in 30 Days - [facility] - 3 Facilities in 90 Days CARE PROVIDERS JAMES HOFFMAN Operations General Agent: Medical 08/16/2018-Current PHONE: Unknown -, Alexis- Dentist: Director Of Litigation [facility] PHONE: [phone] MIRIAM GRIFFIN Current PHONE: Unknown [facility]/Center: [facility] WORKERS CLINIC [facility] ([facility]) [facility] PHONE: [phone] Taylor has no Care Guidelines for this patient. Nelly VISIT COUNT (12 MO.) [address] Debora Suarez (Annmarie Anguiano) TOTAL 19 NOTE: Visits indicate total known visits. ED/UCC VISIT TRACKING (12 MO.) 06/18/2024 13:[address] [facility] [place] TYPE: Emergency COMPLAINT: - COLD SYMPTOMS 06/18/2024 06:[address] [facility] [place] TYPE: Emergency COMPLAINT: - COUGH 06/17/2024 11:[address] [facility] St[facility] Zana Tanner [place] TYPE: Emergency COMPLAINT: - COLD SYMPTOMS 06/14/2024 23:46 NATALIE Robertson [place] TYPE: Emergency COMPLAINT: - ABDOMINAL PAIN 06/06/2024 06:54 NATALIE Robertson [place] TYPE: Emergency COMPLAINT: - ABDOMINAL PAIN DIAGNOSES: - Allergy status to analgesic agent - Exercise induced bronchospasm - Lower abdominal pain, unspecified - Obesity, unspecified - Other exterminator (current) drug therapy 05/28/2024 17:58 [facility] (Annmarie Anguiano) TYPE: Emergency DIAGNOSES: - Disorientation, unspecified - Mental Health Evaluation 05/23/2024 02:27 [employer] [place] TYPE: Emergency DIAGNOSES: - Epigastric pain - abd pain 05/18/2024 17:28 [facility] [place] TYPE: Emergency COMPLAINT: - VOMITING DIAGNOSES: - Allergy status to analgesic agent - Dehydration - Epigastric pain - Gastro-esophageal reflux disease without esophagitis - Other asthma 03/01/2024 19:53 [employer] [place] TYPE: Emergency DIAGNOSES: - Alcohol abuse, uncomplicated - Nausea with vomiting, unspecified - VOMITING 02/08/2024 22:54 [employer] [place] TYPE: Emergency COMPLAINT: - SOB DIAGNOSES: - SOB 01/21/2024 17:25 [employer] [place] TYPE: Emergency DIAGNOSES: - Acute bronchitis due to other specified organisms - Bronchitis, not specified as acute or chronic - Other specified bacterial agents as the cause of diseases classified elsewhere - GENERAL 01/15/2024 16:16 [employer] [place] TYPE: Emergency DIAGNOSES: - COVID-19 - Pneumonia due to Mycoplasma pneumoniae - Unspecified psychosis not due to a substance or known physiological condition - MENTAL HEALTH 01/11/2024 19:23 [facility] [place] TYPE: Emergency DIAGNOSES: - Acute suppurative otitis media without spontaneous rupture of ear drum, left ear - Foreign body sensation, other site - FB IN EAR 12/14/2023 15:58 [facility] [place] TYPE: Emergency DIAGNOSES: - Chest pain, unspecified - DIZZINESS CHEST PAIN 11/23/2023 09:00 [facility] [place] TYPE: Emergency DIAGNOSES: - Bunion of left foot - Bunion of right foot - foot pain 10/26/2023 02:10 [facility] Annmarie ROMANO (Annmarie Anguiano) TYPE: Emergency DIAGNOSES: - Encounter for other general examination - Hypokalemia - Other stimulant abuse, uncomplicated - Unspecified psychosis not due to a substance or known physiological condition - Mental Health Evaluation 09/01/2023 16:13 [facility] [place] TYPE: Emergency DIAGNOSES: - Cystitis, unspecified with hematuria - Viral infection, unspecified - DOESNT FEEL GOOD 06/22/2023 08:11 [facility] [place] TYPE: Emergency COMPLAINT: - MEDICAL CLEARANCE DIAGNOSES: - Encounter for general psychiatric examination, requested by authority - Exercise induced bronchospasm - Homelessness unspecified - Other exterminator (current) drug therapy 06/19/2023 06:30 [facility] Erick ROMANO (Annmarie Anguiano) TYPE: Emergency DIAGNOSES: - Hematuria, unspecified - Urinary tract infection, site not specified - Abdominal Pain INPATIENT VISIT TRACKING (12 MO.) 03/08/2024 18:15 [facility] [place] TYPE: Psychiatric Services DIAGNOSES: 0. Unspecified psychosis not due to a substance or known physiological condition 1. Unspecified psychosis not due to a substance or known physiological condition 2. Alcohol dependence, uncomplicated 2. Bipolar disorder, current episode manic severe with psychotic features 2. Homelessness unspecified 2. Nicotine dependence, cigarettes, uncomplicated 2. Other specified lack of adequate food [email or web address]
[2024-06-18] MEDS ORDERED: ALBUTEROL/IPRATROPIUM 3 ML NEB INH ONE (14:15)
[2024-06-18] MEDS ORDERED: ACETAMINOPHEN 500 MG TAB PO ONE (14:15)
[2024-06-18 17:11] VITALS: BP 95/63
== END 2024-06-18 17:13 | disposition home or self-care (01) ==
LOC: ED 13:29
DX: B34.9 Viral infection, unspecified (principal); J45.990 Exercise induced bronchospasm; Z88.6 Allergy status to analgesic agent; Z79.52 Long term (current) use of systemic steroids; Z79.899 Other long term (current) drug therapy; Z59.02 Unsheltered homelessness
CPT/HCPCS: 94640; 94667; 99285; A9270

== ENCOUNTER 2024-06-20 16:11 | Emergency (ER) | payer OTHER ==
[~2024-06-20] VITALS: Ht 160 cm; Wt 81.6 kg
--- OUTSIDE RECORDS SUMMARY | 2024-06-20 16:12 | XMS ---
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 WORKERS CLINIC [facility] ([facility]) [facility] PHONE: [phone] Taylor has no Care Guidelines for this patient. Nelly VISIT COUNT (12 MO.) [address] Debora Suarez (Annmarie Anguiano) TOTAL 19 NOTE: Visits indicate total known visits. ED/UCC VISIT TRACKING (12 MO.) 06/20/2024 16:[address] [facility] [address] Zana Tanner [place] TYPE: Emergency COMPLAINT: - SOB 06/18/2024 13:[address] [facility] [address] Zana Tanner [place] TYPE: Emergency COMPLAINT: - COLD SYMPTOMS 06/18/2024 06:46 NATALIE Robertson [place] TYPE: Emergency COMPLAINT: - COUGH 06/17/2024 11:[address] [facility] [address] Zana Tanner [place] TYPE: Emergency COMPLAINT: - COLD SYMPTOMS 06/14/2024 23:46 NATALIE Robertson [place] TYPE: Emergency COMPLAINT: - ABDOMINAL PAIN DIAGNOSES: - Acquired absence of other specified parts of digestive tract - Allergy status to analgesic agent - Exercise induced bronchospasm - Gastro-esophageal reflux disease without esophagitis - Heartburn 06/06/2024 06:54 NATALIE Robertson [place] TYPE: Emergency COMPLAINT: - ABDOMINAL PAIN DIAGNOSES: - Allergy status to analgesic agent - Exercise induced bronchospasm - Lower abdominal pain, unspecified - Obesity, unspecified - Other exterminator helper (current) drug therapy 05/28/2024 17:58 [facility]Annmarie Anguiano[facility] TYPE: Emergency DIAGNOSES: - Disorientation, unspecified - Mental Health Evaluation 05/23/2024 02:27 [facility] [place] TYPE: Emergency DIAGNOSES: - Epigastric pain - abd pain 05/18/2024 17:28 NATALIE Robertson [place] TYPE: Emergency COMPLAINT: - VOMITING DIAGNOSES: - Allergy status to analgesic agent - Dehydration - Epigastric pain - Gastro-esophageal reflux disease without esophagitis - Other asthma 03/01/2024 19:53 [facility] [place] TYPE: Emergency DIAGNOSES: - Alcohol abuse, uncomplicated - Nausea with vomiting, unspecified - VOMITING 02/08/2024 22:54 [facility] [place] TYPE: Emergency COMPLAINT: - SOB DIAGNOSES: - SOB 01/21/2024 17:25 [facility] [place] TYPE: Emergency DIAGNOSES: - Acute bronchitis due to other specified organisms - Bronchitis, not specified as acute or chronic - Other specified bacterial agents as the cause of diseases classified elsewhere - GENERAL 01/15/2024 16:16 [email or web address] [place] TYPE: Emergency DIAGNOSES: - COVID-19 - Pneumonia due to Mycoplasma pneumoniae - Unspecified psychosis not due to a substance or known physiological condition - MENTAL HEALTH 01/11/2024 19:23 [employer] [place] TYPE: Emergency DIAGNOSES: - Acute suppurative otitis media without spontaneous rupture of ear drum, left ear - Foreign body sensation, other site - FB IN EAR 12/14/2023 15:58 [employer] [place] TYPE: Emergency DIAGNOSES: - Chest pain, unspecified - DIZZINESS CHEST PAIN 11/23/2023 09:00 [employer] [place] TYPE: Emergency DIAGNOSES: - Bunion of left foot - Bunion of right foot - foot pain 10/26/2023 02:10 [facility] (Annmarie Anguiano) TYPE: Emergency DIAGNOSES: - Encounter for other general examination - Hypokalemia - Other stimulant abuse, uncomplicated - Unspecified psychosis not due to a substance or known physiological condition - Mental Health Evaluation 09/01/2023 16:13 [facility] [place] TYPE: Emergency DIAGNOSES: - Cystitis, unspecified with hematuria - Viral infection, unspecified - DOESNT FEEL GOOD 06/22/2023 08:11 NATALIE Robertson [place] TYPE: Emergency COMPLAINT: - MEDICAL CLEARANCE DIAGNOSES: - Encounter for general psychiatric examination, requested by authority - Exercise induced bronchospasm - Homelessness unspecified - Other fdc (current) drug therapy INPATIENT VISIT TRACKING (12 MO.) 03/08/2024 18:15 [facility] [place] TYPE: Psychiatric Services DIAGNOSES: 0. Unspecified psychosis not due to a substance or known physiological condition 1. Unspecified psychosis not due to a substance or known physiological condition 2. Alcohol dependence, uncomplicated 2. Bipolar disorder, current episode manic severe with psychotic features 2. Homelessness unspecified 2. Nicotine dependence, cigarettes, uncomplicated 2. Other specified lack of adequate food [email or web address]
[2024-06-20 17:55] VITALS: BP 123/95
== END 2024-06-20 18:05 | disposition home or self-care (01) ==
LOC: ED 16:11
DX: B34.9 Viral infection, unspecified (principal); J45.998 Other asthma; Z88.6 Allergy status to analgesic agent; Z79.899 Other long term (current) drug therapy
CPT/HCPCS: 99283